=== PATIENT | male | born 1980 | race Caucasian/White ===

== ENCOUNTER 2016-12-21 11:06 | Emergency (ER) | payer OTHER ==
[2016-12-21] MEDS ORDERED: Dexamethasone 4 MG TAB ONE (12:02)
[2016-12-21] MEDS ORDERED: Dexamethasone 4 mg/ml Vial ONE (12:02)
--- NOTE | 2016-12-21 12:02 | RAD ---
CHEST 2 VIEWS: HISTORY: Cough. COMPARISON: 11/29/15. FINDINGS: The cardiac silhouette and pulmonary vasculature are unremarkable. Mediastinum is midline. There i s no confluent airspace consolidation, pneumothorax, or pleural fluid apparent. IMPRESSION: No active cardiopulmonary abnormalities are demonstrated. POS: [facility]
[2016-12-21] MEDS ORDERED: hydrOXYzine 25 MG TAB ONE (12:07)
[2016-12-21] MEDS ORDERED: Amoxicillin/Potassium Clav 875 MG TAB ONE (12:07)
[2016-12-21] MEDS ORDERED: HYDROcodone/Acetaminophen 5/325 mg Tablet ONE (12:50)
== END 2016-12-21 13:50 | disposition home or self-care (01) ==
LOC: MADERS 11:06
DX: J40 Bronchitis, not specified as acute or chronic (principal); R21 Rash and other nonspecific skin eruption; F41.9 Anxiety disorder, unspecified; F32.9 Major depressive disorder, single episode, unspecified; F17.210 Nicotine dependence, cigarettes, uncomplicated
CPT/HCPCS: 71020; J1100; J7620; J8540